=== PATIENT | female | born 2000 | race African-American/Black ===

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

== ENCOUNTER 2024-03-23 13:20 | Emergency (ER) | payer MEDICAID, OTHER ==
[~2024-03-23] VITALS: Ht 157.5 cm; Wt 90.7 kg
[~2024-03-23 13:20] MED LIST changes: +TOPUD MT
[2024-03-23 13:31] VITALS: BP 118/79; RESP 16; TEMP 98.1; O2SAT 99
[2024-03-23 13:35] VITALS: PULSE 99; O2SAT 98
[2024-03-23] MEDS ORDERED: ACET-2708 MT (17:15)
[2024-03-23] MEDS ORDERED: CETI1TAB MT (17:15)
[2024-03-23] MEDS ORDERED: IBUP-2028 MT (17:15)
[2024-03-23] MEDS ORDERED: TUSSL MT (17:15)
[2024-03-23] MEDS ORDERED: BENZ100C86 MT (17:15)
[2024-03-23] MEDS ORDERED: ALBU90AE INH (17:16)
== END 2024-03-23 17:28 | disposition home or self-care (01) ==
LOC: ER 13:20
DX: B34.9 Viral infection, unspecified (principal); J45.909 Unspecified asthma, uncomplicated; F10.90 Alcohol use, unspecified, uncomplicated; F12.90 Cannabis use, unspecified, uncomplicated; Z79.899 Other long term (current) drug therapy; Y90.9 Presence of alcohol in blood, level not specified
CPT/HCPCS: 71045; 99283